=== PATIENT | male | born 1995 | race Caucasian/White ===

== ENCOUNTER 2017-12-01 10:45 | Emergency (ER) | payer BC, OTHER ==
--- NOTE | 2017-12-01 11:08 | EDM.PDOC ---
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 He states that he had just completed giving an insulin injection, was using the needle protector when the needle popped off the syringe, hit a chair and ricocheted back at him, striking him in the left third digit, entering on the palmar side. He immediately pulled the needle out, bled the wound and scrubbed it with soap and water. The employee health nurse was notified. He is otherwise healthy without chronic medical problems. - Related Data Allergies Allergy/AdvReac Type Severity Reaction Status Date / Time No Known Allergies Allergy Verified 12/01/17 10:59 Home Meds: Home Meds . [No Known Home Meds] 12/01/17 [History] Past Medical History - Past Health History Medical/Surgical History: Denies Medical/Surgical History - Infectious Disease History Infectious Disease History: Reports: Chicken Pox Social & Family History - Family History Family Medical History: Noncontributory - Tobacco Use Smoking Status *Q: Never Smoker - Caffeine Use Caffeine Use: Reports: Coffee - Recreational Drug Use Recreational Drug Use: No ED ROS GENERAL - Review of Systems Review Of Systems: ROS reveals no pertinent complaints other than HPI. ED EXAM, SKIN/RASH Exam: See Below Exam Limited By: No Limitations General Appearance: Alert, No Apparent Distress Ears: Normal External Exam Nose: Normal Inspection Throat/Mouth: Normal Inspection Head: Atraumatic, Normocephalic Neck: Normal Inspection Respiratory/Chest: No Respiratory Distress, Lungs Clear Cardiovascular: Normal Peripheral Pulses, Regular Rate, Rhythm, No Murmur GI/Abdominal: Soft Skin: Warm, Dry, Normal Color, No Rash, Other (microscopic pin prick left 3rd digit between DIP and PIP joint palmar side) Course - Vital Signs Last Recorded V/S: Last Vital Signs Temp 36.3 C 12/01/17 10:56 Pulse 66 12/01/17 10:56 Resp 18 12/01/17 10:56 BP 133/84 12/01/17 10:56 Pulse Ox 99 12/01/17 10:56 - Orders/Labs/Meds Orders: Active Orders 24 hr Category Date Time Status HEPATITIS C AB [REF] Stat Lab 12/01/17 10:48 Ordered HIV12 AG/AB 4TH GEN W/REFLEX [CHEM] Stat Lab 12/01/17 10:48 Ordered Departure - Departure Time of Disposition: 11:10 Disposition: Home, Self-Care 01 Condition: Good Clinical Impression: Needle exposure Qualifiers: Encounter type: initial encounter Qualified Code(s): X58.XXXA - Exposure to other specified factors, initial encounter - Discharge Information Instructions: Needlestick Injury, [id number] Referrals: PCP,None [Primary Care Provider] - Additional Instructions: 1. Follow up with employee health nurse
== END 2017-12-01 11:18 | disposition home or self-care (01) ==
LOC: MW.ED 10:45
DX: S60.943A Unspecified superficial injury of left middle finger, initial encounter (principal); W46.0XXA Contact with hypodermic needle, initial encounter
CPT/HCPCS: 36415; 86803; 87389; 99282